=== PATIENT | male | born 1950 | race Caucasian/White ===

== ENCOUNTER 2018-06-26 09:47 | Inpatient (IN) ==
[2018-06-26] MEDS ORDERED: DICYCLOMINE 20 MG/2 ML AMP IM ONE (10:09)
[2018-06-26] MEDS ORDERED: LOPERAMIDE 2 MG CAPSULE PO STA (10:09)
[2018-06-26] MEDS ORDERED: METOCLOPRAMIDE 10 MG/2 ML VIAL IV STA (10:09)
[2018-06-26] MEDS ORDERED: SODIUM CHLORIDE 0.9% 1,000 ML IV STA ×2 (10:09→11:13)
[2018-06-26] MEDS ORDERED: ONDANSETRON 4 MG/2 ML VIAL IV STA (10:09)
[2018-06-26] MEDS ORDERED: metroNIDAZOLE INJ 500 MG in PREMIX 1 EACH IV STA (10:09)
[2018-06-26 10:20] LABS: Basophils % 0.5 % (0.0-0.8); Eosinophils % 0.1 % (0.00-10.9); Hemoglobin 14.9 GM/DL (14.0-18.0); Immature Granulocytes % 0.7 %; Immature Granulocytes Absolute 0.06 #; Lymphocytes % 11.5 % (21.2-54.2); Mean Corpuscular HGB Conc 34.7 GM/DL (32-36); Mean Corpuscular Hemoglobin 31 PG (27-34); Mean Corpuscular Volume 88.1 FL (87-102); Mean Platelet Volume 9.8 FL (9.6-12.0); Monocytes # 0.7 10*3/uL (0.11-0.8); Monocytes % 8.2 % (1.7-12.7); Neutrophils # 6.7 10*3/uL (1.4-7.4); Platelet Count 219 T/CUMM (130-400); Red Blood Count 4.88 MC/CUMM (3.8-5.5); Red Cell Distribution Width 13.3 % (9.3-17.3); White Blood Count 8.4 T/CUMM (4-12)
[2018-06-26 10:40] LABS: Albumin 3.1 G/DL (3.4-5.0); Band Neutrophils 4 % (0-10); Bilirubin,Total 0.6 MG/DL (0.2-1.0); Calcium 8.5 MG/DL (8.5-10.1); Hypochromasia 1+; Lymphocytes 9 % (20-55); Osmolality,Calculated 285.8 MOS/KG (273-304); Platelet Estimate Adequate; Potassium 4.2 MMOL/L (3.5-5.1); Segmented Neutrophils 78 % (50-85); Total Cells Counted 100; Total Protein 7.3 G/DL (6.4-8.3)
[2018-06-26] MEDS ORDERED: LOPERAMIDE 2 MG CAPSULE PO PRN (11:19)
[2018-06-26] MEDS ORDERED: ONDANSETRON 4 MG/2 ML VIAL IV PRN (11:19)
[2018-06-26] MEDS ORDERED: ACETAMINOPHEN 500 MG TABLET PO PRN (11:19)
[2018-06-26 11:24] LABS: Apearance,Urine CLOUDY (Clear); Bacteria,Urine Occasional /HPF (Few); Bilirubin,Urine Negative (Negative); Blood, Urine Moderate mg/dL (Negative); Glucose,Urine (UA) Negative (Negative); Hyaline Casts,Urine 50 /LPF (0-3); Ketones,Urine Negative (Negative); Mucus,Urine Occasional /LPF (Occasional); Nitrite,Urine Negative (Negative); Protein,Urine 30 MG/DL; RBC,Urine 103 /HPF (0-4); Squamous Epithelial Cell,Urine Occasional /HPF (0-10); Urine Color Amber (Yellow); Urine Specific Gravity 1.014 (1.001-1.035); Urine Urobilinogen < 2.0 EU/DL (0.2-1.0); WBC,Urine 11 /HPF (0-6)
[2018-06-26] MEDS: metroNIDAZOLE INJ 500 MG in PREMIX 1 EACH IV SCH ×3 (11:50→23:01)
[2018-06-26] MEDS: SODIUM CHLORIDE 0.9% 1,000 ML IV SCH (15:26)
[2018-06-26] MEDS ORDERED: DIPHENOXYLATE/ATROPINE 2.5-0.025 MG TABLET PO PRN (18:46)
[2018-06-27] MEDS: SODIUM CHLORIDE 0.9% 1,000 ML IV SCH ×2 (00:06→09:35)
[2018-06-27 05:17] LABS: Basophils % 0.5 % (0.0-0.8); Eosinophils % 0.2 % (0.00-10.9); Hematocrit 36.9 VOL% (42.0-52.0); Hemoglobin 12.6 GM/DL (14.0-18.0); Immature Granulocytes % 0.5 %; Immature Granulocytes Absolute 0.03 #; Lymphocytes # 0.9 10*3/uL (1.4-4.0); Lymphocytes % 16.6 % (21.2-54.2); Mean Corpuscular HGB Conc 34.1 GM/DL (32-36); Mean Corpuscular Hemoglobin 30 PG (27-34); Mean Corpuscular Volume 88.9 FL (87-102); Monocytes # 0.8 10*3/uL (0.11-0.8); Monocytes % 13.6 % (1.7-12.7); Neutrophils # 3.8 10*3/uL (1.4-7.4); Neutrophils % 68.6 % (38.7-73.9); Platelet Count 188 T/CUMM (130-400); Red Blood Count 4.15 MC/CUMM (3.8-5.5); Red Cell Distribution Width 13.2 % (9.3-17.3); White Blood Count 5.6 T/CUMM (4-12)
[2018-06-27] MEDS: metroNIDAZOLE INJ 500 MG in PREMIX 1 EACH IV SCH ×4 (05:31→23:50)
[2018-06-27 05:56] LABS: Risk Ratio 3.64
[2018-06-27 06:01] LABS: Band Neutrophils 35 % (0-10); Eosinophils 1 % (0-10); Lymphocytes 10 % (20-55); Segmented Neutrophils 44 % (50-85); Total Cells Counted 100
[2018-06-27 06:03] LABS: Albumin 2.5 G/DL (3.4-5.0); Bilirubin,Total 0.7 MG/DL (0.2-1.0); Calcium 7.6 MG/DL (8.5-10.1); Free T4 (Free Thyroxine) 0.86 NG/DL (0.76-1.46); Osmolality,Calculated 300.7 MOS/KG (273-304); Potassium 3.8 MMOL/L (3.5-5.1); Total Protein 5.4 G/DL (6.4-8.3)
[2018-06-27] MEDS: LEVOTHYROXINE 137 MCG TABLET PO SCH (07:11)
[2018-06-27 08:11] LABS: Amorphous Crystals,Urine Occasional /HPF (Few); Apearance,Urine CLEAR (Clear); Bacteria,Urine Occasional /HPF (Few); Bilirubin,Urine Negative (Negative); Blood, Urine Moderate mg/dL (Negative); Glucose,Urine (UA) Negative (Negative); Ketones,Urine Negative (Negative); Mucus,Urine Occasional /LPF (Occasional); Nitrite,Urine Negative (Negative); Protein,Urine 30 MG/DL; RBC,Urine <1 /HPF (0-4); Squamous Epithelial Cell,Urine Occasional /HPF (0-10); Urine Color Yellow (Yellow); Urine Urobilinogen < 2.0 EU/DL (0.2-1.0); WBC,Urine 1 /HPF (0-6)
[2018-06-27] MEDS ORDERED: LISINOPRIL 10 MG TABLET PO SCH (09:00)
[2018-06-27] MEDS: PANTOPRAZOLE 40 MG TABLET PO SCH (09:26)
[2018-06-27] MEDS: TAMSULOSIN 0.4 MG CAPSULE PO SCH (09:26)
[2018-06-27] MEDS: SODIUM CHLOR 0.9% KCL 20 MEQ 20 MEQ/1,000 ML BAG IV SCH ×2 (09:27→17:03)
[2018-06-28] MEDS: SODIUM CHLOR 0.9% KCL 20 MEQ 20 MEQ/1,000 ML BAG IV SCH ×3 (02:01→18:29)
[2018-06-28] MEDS: metroNIDAZOLE INJ 500 MG in PREMIX 1 EACH IV SCH (05:34)
[2018-06-28 06:02] LABS: Basophils % 0.6 % (0.0-0.8); Eosinophils % 0.9 % (0.00-10.9); Hematocrit 34.2 VOL% (42.0-52.0); Immature Granulocytes % 0.9 %; Immature Granulocytes Absolute 0.04 #; Lymphocytes # 1.1 10*3/uL (1.4-4.0); Lymphocytes % 22.6 % (21.2-54.2); Mean Corpuscular HGB Conc 35.1 GM/DL (32-36); Mean Corpuscular Hemoglobin 31 PG (27-34); Mean Platelet Volume 9.9 FL (9.6-12.0); Monocytes # 0.7 10*3/uL (0.11-0.8); Monocytes % 15.7 % (1.7-12.7); Neutrophils # 2.8 10*3/uL (1.4-7.4); Neutrophils % 59.3 % (38.7-73.9); Platelet Count 172 T/CUMM (130-400); Red Blood Count 3.93 MC/CUMM (3.8-5.5); Red Cell Distribution Width 13.4 % (9.3-17.3); White Blood Count 4.7 T/CUMM (4-12)
[2018-06-28] MEDS: LEVOTHYROXINE 137 MCG TABLET PO SCH (06:13)
[2018-06-28 06:29] LABS: Band Neutrophils 2 % (0-10); Eosinophils 2 % (0-10); Lymphocytes 22 % (20-55); Segmented Neutrophils 59 % (50-85); Total Cells Counted 100
[2018-06-28 06:30] LABS: Platelet Estimate Normal
[2018-06-28 06:40] LABS: Calcium 7.9 MG/DL (8.5-10.1); Osmolality,Calculated 291.1 MOS/KG (273-304); Potassium 4.2 MMOL/L (3.5-5.1)
[2018-06-28] MEDS ORDERED: LEVOTHYROXINE 137 MCG TABLET PO SCH (07:00)
[2018-06-28] MEDS: TAMSULOSIN 0.4 MG CAPSULE PO SCH (08:56)
[2018-06-28] MEDS: PANTOPRAZOLE 40 MG TABLET PO SCH (08:56)
[2018-06-28] MEDS: CIPROFLOXACIN INJ 400 MG in PREMIX 1 EACH IV SCH ×2 (10:56→23:42)
[2018-06-29] MEDS: SODIUM CHLOR 0.9% KCL 20 MEQ 20 MEQ/1,000 ML BAG IV SCH (02:16)
[2018-06-29 05:09] LABS: Basophils % 0.5 % (0.0-0.8); Eosinophils # 0.1 10*3/uL (0.0-0.87); Eosinophils % 3.2 % (0.00-10.9); Hematocrit 32.5 VOL% (42.0-52.0); Hemoglobin 11.2 GM/DL (14.0-18.0); Immature Granulocytes % 1.5 %; Immature Granulocytes Absolute 0.06 #; Lymphocytes # 1.5 10*3/uL (1.4-4.0); Lymphocytes % 37.4 % (21.2-54.2); Mean Corpuscular HGB Conc 34.5 GM/DL (32-36); Mean Corpuscular Hemoglobin 30 PG (27-34); Mean Corpuscular Volume 87.4 FL (87-102); Mean Platelet Volume 10.1 FL (9.6-12.0); Monocytes # 0.6 10*3/uL (0.11-0.8); Monocytes % 13.8 % (1.7-12.7); Neutrophils # 1.8 10*3/uL (1.4-7.4); Neutrophils % 43.6 % (38.7-73.9); Platelet Count 168 T/CUMM (130-400); Red Blood Count 3.72 MC/CUMM (3.8-5.5); Red Cell Distribution Width 13.5 % (9.3-17.3); White Blood Count 4.1 T/CUMM (4-12)
[2018-06-29 05:40] LABS: Calcium 7.6 MG/DL (8.5-10.1); Osmolality,Calculated 289.7 MOS/KG (273-304); Potassium 4.5 MMOL/L (3.5-5.1)
[2018-06-29 05:41] LABS: Eosinophils 5 % (0-10); Hypochromasia 1+; Lymphocytes 38 % (20-55); Platelet Estimate Normal; Segmented Neutrophils 43 % (50-85); Total Cells Counted 100
[2018-06-29] MEDS: LEVOTHYROXINE 137 MCG TABLET PO SCH (06:31)
[2018-06-29 07:22] VITALS: BP 145/68
[2018-06-29] MEDS ORDERED: CIPROFLOXACIN 500 MG TABLET PO SCH (09:00)
[2018-06-29] MEDS: PANTOPRAZOLE 40 MG TABLET PO SCH (09:54)
[2018-06-29] MEDS: TAMSULOSIN 0.4 MG CAPSULE PO SCH (09:55)
== END 2018-06-29 11:10 | disposition home or self-care (01) | DRG 371 ==
LOC: N.ED 09:47 → N.EDINP 11:18 → N.2E 13:30
PROVIDERS: ADMIT Family Medicine; ATTEND Family Medicine

== ENCOUNTER 2019-08-03 16:37 | Inpatient (IN) ==
[2019-08-03] MEDS ORDERED: ONDANSETRON 4 MG/2 ML VIAL IV PRN (16:58)
[2019-08-03] MEDS ORDERED: MAGNESIUM HYDROXIDE SUSP 30 ML UDCUP PO PRN (16:58)
[2019-08-03] MEDS ORDERED: ACETAMINOPHEN 325 MG TABLET PO PRN (16:58)
[2019-08-03] MEDS: POTASSIUM CHLORIDE INJ 10 MEQ in SODIUM CHLORIDE 0.9% 1,000 ML IV SCH (18:48)
[2019-08-03 18:53] LABS: Basophils # 0.1 10*3/uL (0.0-0.2); Basophils % 0.7 % (0.0-0.8); Eosinophils # 0.4 10*3/uL (0.0-0.87); Eosinophils % 4.8 % (0.00-10.9); Hematocrit 37.5 VOL% (42.0-52.0); Hemoglobin 11.7 GM/DL (14.0-18.0); Immature Granulocytes % 0.4 %; Immature Granulocytes Absolute 0.03 #; Lymphocytes % 24.2 % (21.2-54.2); Mean Corpuscular HGB Conc 31.2 GM/DL (32-36); Mean Corpuscular Volume 86.4 FL (87-102); Mean Platelet Volume 9.6 FL (9.6-12.0); Monocytes % 9.7 % (1.7-12.7); Neutrophils % 60.2 % (38.7-73.9); Platelet Count 220 T/CUMM (130-400); Red Blood Count 4.34 MC/CUMM (3.8-5.5); Red Cell Distribution Width 14.1 % (9.3-17.3); White Blood Count 8.2 T/CUMM (4-12)
[2019-08-03 19:32] LABS: Albumin 3.9 G/DL (3.4-5.0); Bilirubin,Total 0.5 MG/DL (0.2-1.0); Calcium 9.1 MG/DL (8.5-10.1); Osmolality,Calculated 282.1 MOS/KG (273-304); Total Protein 7.6 G/DL (6.4-8.3)
[2019-08-03] MEDS ORDERED: VANCOMYCIN INJ 1,250 MG in SODIUM CHLORIDE 0.9% 250 ML IV ONE (20:00)
[2019-08-03 20:26] LABS: Apearance,Urine CLEAR (Clear); Bilirubin,Urine Negative (Negative); Blood, Urine Negative (Negative); Glucose,Urine (UA) Negative (Negative); Ketones,Urine Negative (Negative); Mucus,Urine Occasional /LPF (Occasional); Nitrite,Urine Negative (Negative); Protein,Urine Negative; RBC,Urine <1 /HPF (0-4); Urine Color Straw (Yellow); Urine Urobilinogen < 2.0 EU/DL (0.2-1.0); WBC,Urine <1 /HPF (0-6)
[2019-08-03] MEDS: TAMSULOSIN 0.4 MG CAPSULE PO SCH (20:41)
[2019-08-03] MEDS: MUPIROCIN 2% OINT 22 GM TUBE TOP SCH (20:42)
[2019-08-04 05:28] LABS: Basophils # 0.1 10*3/uL (0.0-0.2); Basophils % 0.9 % (0.0-0.8); Eosinophils # 0.5 10*3/uL (0.0-0.87); Eosinophils % 8.7 % (0.00-10.9); Hematocrit 32.8 VOL% (42.0-52.0); Hemoglobin 10.1 GM/DL (14.0-18.0); Immature Granulocytes % 0.3 %; Immature Granulocytes Absolute 0.02 #; Lymphocytes # 1.4 10*3/uL (1.4-4.0); Lymphocytes % 24.3 % (21.2-54.2); Mean Corpuscular HGB Conc 30.8 GM/DL (32-36); Mean Corpuscular Volume 86.1 FL (87-102); Mean Platelet Volume 9.8 FL (9.6-12.0); Monocytes % 13.2 % (1.7-12.7); Neutrophils % 52.6 % (38.7-73.9); Platelet Count 166 T/CUMM (130-400); Red Blood Count 3.81 MC/CUMM (3.8-5.5); Red Cell Distribution Width 14.3 % (9.3-17.3); White Blood Count 5.8 T/CUMM (4-12)
[2019-08-04] MEDS: LEVOTHYROXINE 112 MCG TABLET PO SCH (05:52)
[2019-08-04 06:12] LABS: Calcium 8.2 MG/DL (8.5-10.1); Osmolality,Calculated 285.8 MOS/KG (273-304)
[2019-08-04] MEDS: POTASSIUM CHLORIDE INJ 10 MEQ in SODIUM CHLORIDE 0.9% 1,000 ML IV SCH ×2 (06:39→17:51)
[2019-08-04] MEDS: PANTOPRAZOLE 40 MG TABLET PO SCH (08:11)
[2019-08-04] MEDS: LISINOPRIL 10 MG TABLET PO SCH (08:11)
[2019-08-04] MEDS: VANCOMYCIN INJ 1,250 MG in SODIUM CHLORIDE 0.9% 250 ML IV SCH ×2 (08:12→20:37)
[2019-08-04] MEDS: MUPIROCIN 2% OINT 22 GM TUBE TOP SCH ×2 (08:17→20:37)
[2019-08-04] MEDS ORDERED: LIDOCAINE 2%/EPI 20 ML VIAL MISC INJ ONE (09:30)
[2019-08-04] MEDS ORDERED: LIDOCAINE MPF 2% /EPI 20 ML VIAL MISC INJ ONE (10:00)
[2019-08-04] MEDS ORDERED: MORPHINE 4 MG/1 ML VIAL IV PRN (12:56)
[2019-08-04] MEDS: TAMSULOSIN 0.4 MG CAPSULE PO SCH (20:37)
[2019-08-05 05:23] LABS: Basophils # 0.1 10*3/uL (0.0-0.2); Basophils % 0.9 % (0.0-0.8); Eosinophils # 0.5 10*3/uL (0.0-0.87); Eosinophils % 8.4 % (0.00-10.9); Hematocrit 31.3 VOL% (42.0-52.0); Hemoglobin 9.7 GM/DL (14.0-18.0); Immature Granulocytes % 0.2 %; Immature Granulocytes Absolute 0.01 #; Lymphocytes # 1.4 10*3/uL (1.4-4.0); Lymphocytes % 25.1 % (21.2-54.2); Mean Corpuscular Volume 86.9 FL (87-102); Mean Platelet Volume 9.7 FL (9.6-12.0); Monocytes % 11.7 % (1.7-12.7); Neutrophils % 53.7 % (38.7-73.9); Platelet Count 163 T/CUMM (130-400); Red Cell Distribution Width 14.2 % (9.3-17.3); White Blood Count 5.4 T/CUMM (4-12)
[2019-08-05] MEDS: POTASSIUM CHLORIDE INJ 10 MEQ in SODIUM CHLORIDE 0.9% 1,000 ML IV SCH ×2 (05:43→16:35)
[2019-08-05] MEDS: LEVOTHYROXINE 112 MCG TABLET PO SCH (05:43)
[2019-08-05 06:04] LABS: Osmolality,Calculated 290.4 MOS/KG (273-304)
[2019-08-05] MEDS: LISINOPRIL 10 MG TABLET PO SCH (08:27)
[2019-08-05] MEDS: PANTOPRAZOLE 40 MG TABLET PO SCH (08:27)
[2019-08-05] MEDS: MUPIROCIN 2% OINT 22 GM TUBE TOP SCH ×2 (08:28→20:02)
[2019-08-05] MEDS: ENOXAPARIN 40 MG/0.4 ML SYRINGE SUBCUT SCH (08:29)
[2019-08-05] MEDS: VANCOMYCIN INJ 1,250 MG in SODIUM CHLORIDE 0.9% 250 ML IV SCH ×2 (09:45→20:01)
[2019-08-05] MEDS: TAMSULOSIN 0.4 MG CAPSULE PO SCH (20:01)
[2019-08-06] MEDS: POTASSIUM CHLORIDE INJ 10 MEQ in SODIUM CHLORIDE 0.9% 1,000 ML IV SCH ×2 (04:24→17:39)
[2019-08-06] MEDS: LEVOTHYROXINE 112 MCG TABLET PO SCH (06:05)
[2019-08-06 06:24] LABS: Basophils % 0.7 % (0.0-0.8); Eosinophils # 0.5 10*3/uL (0.0-0.87); Eosinophils % 8.6 % (0.00-10.9); Hematocrit 32.7 VOL% (42.0-52.0); Hemoglobin 10.4 GM/DL (14.0-18.0); Immature Granulocytes % 0.3 %; Immature Granulocytes Absolute 0.02 #; Lymphocytes # 1.3 10*3/uL (1.4-4.0); Lymphocytes % 21.2 % (21.2-54.2); Mean Corpuscular HGB Conc 31.8 GM/DL (32-36); Mean Corpuscular Volume 86.5 FL (87-102); Mean Platelet Volume 9.3 FL (9.6-12.0); Monocytes % 12.4 % (1.7-12.7); Neutrophils % 56.8 % (38.7-73.9); Platelet Count 184 T/CUMM (130-400); Red Blood Count 3.78 MC/CUMM (3.8-5.5); Red Cell Distribution Width 14.1 % (9.3-17.3)
[2019-08-06 06:54] LABS: Albumin 3.4 G/DL (3.4-5.0); Bilirubin,Total 0.4 MG/DL (0.2-1.0); Calcium 8.3 MG/DL (8.5-10.1); Osmolality,Calculated 288.7 MOS/KG (273-304); Total Protein 6.1 G/DL (6.4-8.3)
[2019-08-06] MEDS: MUPIROCIN 2% OINT 22 GM TUBE TOP SCH (09:00)
[2019-08-06] MEDS: VANCOMYCIN INJ 1,250 MG in SODIUM CHLORIDE 0.9% 250 ML IV SCH (09:23)
[2019-08-06] MEDS: ENOXAPARIN 40 MG/0.4 ML SYRINGE SUBCUT SCH (09:24)
[2019-08-06] MEDS: LISINOPRIL 10 MG TABLET PO SCH (09:24)
[2019-08-06] MEDS: PANTOPRAZOLE 40 MG TABLET PO SCH (09:24)
[2019-08-06 15:10] VITALS: BP 158/71
[2019-08-06] MEDS ORDERED: VANCOMYCIN INJ 1,500 MG in SODIUM CHLORIDE 0.9% 500 ML IV SCH (17:00)
== END 2019-08-06 19:46 | disposition home or self-care (01) | DRG 155 ==
LOC: N.2E 17:58
PROVIDERS: ADMIT Family Medicine; ATTEND Family Medicine

== ENCOUNTER 2022-01-16 13:53 | Inpatient (IN) ==
[2022-01-16] MEDS ORDERED: ONDANSETRON 4 MG/2 ML VIAL IV PRN (14:03)
[2022-01-16] MEDS ORDERED: MAGNESIUM HYDROXIDE SUSP 30 ML UDCUP PO PRN (14:03)
[2022-01-16] MEDS ORDERED: METOPROLOL SUCCINATE XL 25 MG TABLET PO ONE (14:38)
[2022-01-16] MEDS ORDERED: ZALEPLON 5 MG CAPSULE PO PRN (14:38)
[2022-01-16 15:24] LABS: Basophils # 0.1 10*3/uL (0.0-0.2); Basophils % 0.5 % (0.0-0.8); Eosinophils # 0.1 10*3/uL (0.0-0.87); Eosinophils % 0.7 % (0.00-10.9); Hematocrit 39.6 VOL% (42.0-52.0); Hemoglobin 12.7 GM/DL (14.0-18.0); Immature Granulocytes % 0.5 %; Immature Granulocytes Absolute 0.06 #; Lymphocytes # 1.1 10*3/uL (1.4-4.0); Lymphocytes % 8.6 % (21.2-54.2); Mean Corpuscular HGB Conc 32.1 GM/DL (32-36); Mean Corpuscular Volume 86.8 FL (87-102); Mean Platelet Volume 9.2 FL (9.6-12.0); Monocytes % 7.4 % (1.7-12.7); Neutrophils % 82.3 % (38.7-73.9); Platelet Count 231 T/CUMM (130-400); Red Blood Count 4.56 MC/CUMM (3.8-5.5); Red Cell Distribution Width 14.5 % (9.3-17.3); White Blood Count 12.4 T/CUMM (4-12)
[2022-01-16 15:42] LABS: Albumin 3.9 G/DL (3.4-5.0); Bilirubin,Total 0.7 MG/DL (0.20-1.00); Calcium 9.5 MG/DL (8.5-10.1); Osmolality,Calculated 277.8 MOS/KG (273-304); Potassium 4.3 MMOL/L (3.5-5.1); Total Protein 7.1 G/DL (6.4-8.2)
[2022-01-16] MEDS ORDERED: KETOROLAC 30 MG/1 ML VIAL IM ONE (16:43)
[2022-01-16] MEDS: DEXTROSE 5% NACL 0.45% 1,000 ML IV SCH (17:46)
[2022-01-16] MEDS: DOCUSATE SODIUM 100 MG CAPSULE PO SCH (20:46)
[2022-01-16] MEDS: levETIRAcetam 500 MG TABLET PO SCH (20:46)
[2022-01-16] MEDS: ACETAMINOPHEN 325 MG TABLET PO PRN (23:15)
[2022-01-17 01:37] LABS: Bilirubin,Urine Negative (Negative); Blood, Urine Small mg/dL (Negative); Glucose,Urine (UA) Negative (Negative); Hyaline Casts,Urine 1 /LPF (0-3); Ketones,Urine Negative (Negative); Mucus,Urine Occasional /LPF (Occasional); Nitrite,Urine Negative (Negative); Protein,Urine Negative; RBC,Urine 6 /HPF (0-4); Squamous Epithelial Cell,Urine Occasional /HPF (0-10); Urine Appearance CLEAR (Clear); Urine Color Yellow (Yellow); Urine Specific Gravity 1.014 (1.001-1.035); Urine Urobilinogen < 2.0 EU/DL (<2.0)
[2022-01-17 02:44] LABS: Barbiturates Screen,Urine Negative (Negative); Benzodiazepines Screen,Urine Negative (Negative); Cannabinoid Screen,Urine Negative (Negative); Opiate Screen,Urine Positive (Negative); Phencyclidine Screen,Urine Negative (Negative)
[2022-01-17] MEDS: DEXTROSE 5% NACL 0.45% 1,000 ML IV SCH (04:01)
[2022-01-17 06:01] LABS: Basophils # 0.1 10*3/uL (0.0-0.2); Basophils % 0.8 % (0.0-0.8); Eosinophils # 0.4 10*3/uL (0.0-0.87); Hematocrit 34.6 VOL% (42.0-52.0); Hemoglobin 11.2 GM/DL (14.0-18.0); Immature Granulocytes % 0.3 %; Immature Granulocytes Absolute 0.02 #; Lymphocytes # 2.1 10*3/uL (1.4-4.0); Lymphocytes % 35.6 % (21.2-54.2); Mean Corpuscular HGB Conc 32.4 GM/DL (32-36); Mean Corpuscular Volume 85.2 FL (87-102); Mean Platelet Volume 9.4 FL (9.6-12.0); Monocytes % 10.6 % (1.7-12.7); Neutrophils % 46.7 % (38.7-73.9); Platelet Count 200 T/CUMM (130-400); Red Blood Count 4.06 MC/CUMM (3.8-5.5); Red Cell Distribution Width 14.6 % (9.3-17.3)
[2022-01-17] MEDS: LEVOTHYROXINE 112 MCG TABLET PO SCH (06:03)
[2022-01-17] MEDS: ACETAMINOPHEN 325 MG TABLET PO PRN (06:05)
[2022-01-17 06:14] LABS: Albumin 2.9 G/DL (3.4-5.0); Bilirubin,Total 0.4 MG/DL (0.20-1.00); Calcium 8.5 MG/DL (8.5-10.1); Osmolality,Calculated 282.5 MOS/KG (273-304); Potassium 3.5 MMOL/L (3.5-5.1); Risk Ratio 4.16; Total Protein 5.7 G/DL (6.4-8.2); VLDL Cholesterol 17.6 MG/DL
[2022-01-17] MEDS: DOCUSATE SODIUM 100 MG CAPSULE PO SCH ×2 (09:17→22:41)
[2022-01-17] MEDS: TAMSULOSIN 0.4 MG CAPSULE PO SCH (09:17)
[2022-01-17] MEDS: PANTOPRAZOLE 40 MG TABLET PO SCH (09:17)
[2022-01-17] MEDS: levETIRAcetam 500 MG TABLET PO SCH ×2 (09:17→22:42)
[2022-01-17] MEDS: atenoloL 25 MG TABLET PO SCH (13:52)
[2022-01-18] MEDS: DEXTROSE 5% NACL 0.45% 1,000 ML IV SCH ×3 (05:45→07:54)
[2022-01-18] MEDS: LEVOTHYROXINE 112 MCG TABLET PO SCH (06:00)
[2022-01-18 06:15] LABS: Basophils # 0.1 10*3/uL (0.0-0.2); Basophils % 1.2 % (0.0-0.8); Eosinophils # 0.6 10*3/uL (0.0-0.87); Eosinophils % 10.8 % (0.00-10.9); Hematocrit 35.6 VOL% (42.0-52.0); Hemoglobin 11.3 GM/DL (14.0-18.0); Immature Granulocytes % 0.4 %; Immature Granulocytes Absolute 0.02 #; Lymphocytes # 2.1 10*3/uL (1.4-4.0); Lymphocytes % 39.4 % (21.2-54.2); Mean Corpuscular HGB Conc 31.7 GM/DL (32-36); Mean Corpuscular Volume 86.6 FL (87-102); Mean Platelet Volume 9.7 FL (9.6-12.0); Monocytes % 11.3 % (1.7-12.7); Neutrophils % 36.9 % (38.7-73.9); Platelet Count 202 T/CUMM (130-400); Red Blood Count 4.11 MC/CUMM (3.8-5.5); Red Cell Distribution Width 14.6 % (9.3-17.3); White Blood Count 5.2 T/CUMM (4-12)
[2022-01-18 06:32] LABS: Osmolality,Calculated 281.3 MOS/KG (273-304)
[2022-01-18 06:38] LABS: Eosinophils 13 % (0-10); Hypochromia Slight; Lymphocytes 39 % (20-55); Microcytosis Slight; Platelet Estimate Adequate; Segmented Neutrophils 42 % (50-85); Total Cells Counted 100
[2022-01-18] MEDS: levETIRAcetam 500 MG TABLET PO SCH (09:40)
[2022-01-18] MEDS: TAMSULOSIN 0.4 MG CAPSULE PO SCH (09:40)
[2022-01-18] MEDS: PANTOPRAZOLE 40 MG TABLET PO SCH (09:40)
[2022-01-18] MEDS: DOCUSATE SODIUM 100 MG CAPSULE PO SCH (09:41)
[2022-01-18] MEDS: atenoloL 25 MG TABLET PO SCH (11:00)
[2022-01-18 12:33] VITALS: BP 142/58
[2022-01-18] MEDS ORDERED: ONDANSETRON 4 MG/2 ML VIAL IV ONE (12:45)
== END 2022-01-18 12:46 | disposition home or self-care (01) | DRG 101 ==
LOC: N.5E 14:55
PROVIDERS: ADMIT Family Medicine; ATTEND Family Medicine